=== PATIENT | female | born 1945 | race Asian ===

== ENCOUNTER 2018-10-06 18:56 | Inpatient (IN) | payer OTHER ==
[~2018-10-06] VITALS: Ht 170.2 cm; Wt 64.0 kg
--- NOTE | 2018-10-06 19:10 | NUR ---
BIBRA. AAOX4. BREATHING EVEN AND UNLBAORED. C/O DIZZYNESS X 1 HOUR AGO. PT IS NAUSEOUS AND VOMITING. AT BEDSIDE FOR EVAL.
--- NOTE | 2018-10-06 19:12 | NUR ---
ACTIVATED CODE STROKE, CALLED TELE NEURO
[2018-10-06] MEDS ORDERED: IOHEXOL-350 100 ML VIAL IV ONE (19:15)
[2018-10-06] MEDS ORDERED: CT SWABBABLE VALVE TRANS SET 1 EA INFUS.SET MC ONE (19:15)
[2018-10-06] MEDS ORDERED: IV NS 0.9% 250 ML IV ONE (19:15)
--- NOTE | 2018-10-06 19:15 | NUR ---
PT BEING WHEELED TO CT ON [facility] WITH RN AT BEDSIDE.
[2018-10-06 19:19] LABS: BASOPHILS # (AUTO) 0.1 /CMM (0.0-0.2); EOSINOPHILS % (AUTO) 3.2 % (0.0-6.0); HEMATOCRIT 40 % (33-45); HEMOGLOBIN 13.3 g/dL (11.5-14.8); LYMPHOCYTES # (AUTO) 2.3 /CMM (0.8-4.8); LYMPHOCYTES % (AUTO) 41.2 % (20.0-44.0); MEAN CORPUSCULAR HGB CONC 33 g/dl (31.0-36.0); MEAN CORPUSCULAR VOLUME 89 fL (82-100); MONOCYTES # (AUTO) 0.4 /CMM (0.1-1.30); MONOCYTES % (AUTO) 6.7 % (2.0-12.0); NEUTROPHILS # (AUTO) 2.6 /CMM (1.8-8.9); NEUTROPHILS % (AUTO) 47.9 % (43.0-81.0); PLATELET COUNT (AUTO) 215 /CMM (150-450); RED BLOOD CELL COUNT(AUTO) 4.49 MIL/uL (4.0-5.2); WHITE BLOOD COUNT (AUTO) 5.5 K/uL (4.3-11.0)
--- NOTE | 2018-10-06 19:25 | NUR ---
PT ON VIDEO CONFERENCE WITH NEUROLOGIDT. DAUGTHER AT BEDSIDE WITH PT.
[2018-10-06 19:31] LABS: CALCIUM, SERUM 8.7 mg/dL (8.5-10.1); CARBON DIOXIDE 24 mmol/L (21-32); CHLORIDE 102 mmol/L (98-107); CREATININE 0.7 mg/dL (0.6-1.3); GLUCOSE 135 mg/dL (74-106); POTASSIUM 3.6 mmol/L (3.5-5.1); SODIUM SERUM 137 mmol/L (136-145); UREA NITROGEN, BLOOD 17 mg/dL (7-18)
--- NOTE | 2018-10-06 19:34 | NUR ---
EKG AT BEDSIDE
[2018-10-06 19:35] LABS: ALANINE AMINOTRANSFERASE 23 U/L (12-78); ALBUMIN 3.6 g/dL (3.4-5.0); ALKALINE PHOSPHATASE 82 U/L (46-116); ASPARTATE AMINOTRANSFERASE 17 U/L (15-37); BILIRUBIN,DIRECT 0.1 mg/dL (0.0-0.2); BILIRUBIN,TOTAL 0.4 mg/dL (0.2-1.0)
--- NOTE | 2018-10-06 19:42 | NUR ---
DR. ANGELES ON THE PHONE WITH DR. MEYERS
--- NOTE | 2018-10-06 19:53 | NUR ---
PT WHEELED BACK TO CT ON [facility]
[2018-10-06] MEDS ORDERED: ONDANSETRON HCL/PF - ER 4 MG/2 ML VIAL IV ONE (20:00)
[2018-10-06] MEDS ORDERED: MECLIZINE HCL 12.5 MG TABLET PO ONE (20:00)
[2018-10-06] MEDS ORDERED: MECLIZINE HCL 12.5 MG TABLET ONE (20:02)
[2018-10-06] MEDS ORDERED: ONDANSETRON HCL/PF 4 MG/2 ML VIAL ONE (20:02)
--- NOTE | 2018-10-06 20:03 | NUR ---
BACL FROM CT
[2018-10-06 20:51] LABS: CHOLESTEROL 190 mg/dL (<200); HDL CHOLESTEROL 69 mg/dL (40-60); LDL 111 mg/dL (0-99); TRIGLYCERIDES 50 mg/dL (30-150)
[2018-10-06] MEDS ORDERED: METO-356 PO (21:41)
[2018-10-06] MEDS ORDERED: APIX5TAB4 PO (21:41)
[2018-10-06] MEDS: MECLIZINE HCL 12.5 MG TABLET PO SCH (22:00)
[2018-10-06] MEDS ORDERED: ONDANSETRON HCL/PF 4 MG/2 ML VIAL IM PRN (22:00)
--- NOTE | 2018-10-06 22:00 | NUR ---
US AT BEDSIDE
--- NOTE | 2018-10-06 22:08 | NUR ---
TEXTED DR. WILLS FOR MRI APPROVAL.
--- NOTE | 2018-10-06 22:12 | NUR ---
MRI APPROVED,IT WILL DONE TOMORROW AM 09/06 OK BY
--- NOTE | 2018-10-06 22:17 | NUR ---
REPORT GIVEN TO AMANDO RODRIGUEZ FOR FAN. PT TO TELE BED 308
--- NOTE | 2018-10-06 22:48 | NUR ---
URINE COLLECTED FROM PT AND SENT TO LAB
--- NOTE | 2018-10-06 23:04 | NUR ---
SPOKE WITH [facility] VP TRANSPORTATION FOR PT INFORMATION. SHE WILL CALL BACK FOR AUTHORIZATION
--- NOTE | 2018-10-06 23:20 | NUR ---
PT AMBULATED TO BATHROOM WITH SBA
--- NOTE | 2018-10-06 23:34 | NUR ---
RECEIVED CALL FROM KRIST[employer] CUSTOMER SERVICE LEADER- DINO. VERBAL APPROVAL TO ADMIT PT.
--- NOTE | 2018-10-07 00:13 | NUR ---
PT TRANSPORTED TO UNIT WITH EMT AT BEDSIDE WITH ACLS PROTOCOL
--- NOTE | 2018-10-07 00:30 | NUR ---
CYBER LEGAL ADVISOR ADMISSION NOTES RECEIVED PATIENT FROM ER VIA MONY. DX: VERTIGO. PATIENT IS ALERT AND ORIENTED X4, VERBALLY RESPONSIVE, ABLE TO MAKE NEEDS KNOWN. FAMILY AT BEDSIDE. BREATHING EVEN AND UNLABORED. NO SOB NOTED. TOLERATING ROOM AIR. CURRENTLY WITH NO COMPLAINTS OF PAIN OR DISCOMFORT. DENIES N/V AT THE MOMENT, NO CHEST PAIN, NO DIZZINESS. PATIENT AMBULATES WITH A STEADY GAIT. IV ON LEFT AND RIGHT ANTECUBITAL INTACT AND PATENT. SKIN DRY AND WARM TO TOUCH. AFEBRILE. ORIENTED TO THE USE OF UNIT AMENITIES. INSTRUCTED ON THE USE OF CALL LIGHT. SKIN CHECK RENDERED WITH NO SKIN ISSUES NOTED. BELONGINGS ACCOUNTED FOR. SAFETY MEASURES IN PLACE. CALL LIGHT WITHIN REACH. WILL CONTINUE TO MONITOR. Addendum: 10/07/18 at 0253 by JENNIFER MCDOWELL RN PATIENT ALREADY HAD ADMISSION ORDERS FROM DR. SARABIA WHEN PATIENT WAS IN ER. ALL WERE CARRIED OUT BY ER NURSE.
--- NOTE | 2018-10-07 01:10 | NUR ---
AMANDO MS NOTES 2200 MECLIZINE NOT ADMINISTERED. PATIENT DID NOT COME IN UNIT UNTIL 00:10. Addendum: 10/07/18 at 0653 by JENNIFER MCDOWELL RN ERROR: PATIENT IS TELE
[2018-10-07] MEDS ORDERED: ONDANSETRON HCL/PF 4 MG/2 ML VIAL IV PRN (02:00)
[2018-10-07 02:05] VITALS: BP 102/63
[2018-10-07 04:00] VITALS: BP 109/58
[2018-10-07] MEDS: MECLIZINE HCL 12.5 MG TABLET PO SCH ×2 (05:34→14:28)
--- NOTE | 2018-10-07 06:27 | NUR ---
COMMERCIAL DRIVER'S LICENSE DRIVER NOTES TRIED CHECKING PATIENT'S ORTHOSTATICS BUT PATIENT REFUSED. PER PATIENT "NOT NOW, SHE STILL WANTS TO SLEEP". WILL ENDORSE TO ONCOMING NURSE.
[2018-10-07 06:51] LABS: CARBON DIOXIDE 27 mmol/L (21-32); CHLORIDE 108 mmol/L (98-107); CREATININE 0.6 mg/dL (0.6-1.3); GLUCOSE 89 mg/dL (74-106); POTASSIUM 3.8 mmol/L (3.5-5.1); SODIUM SERUM 143 mmol/L (136-145); UREA NITROGEN, BLOOD 13 mg/dL (7-18)
--- NOTE | 2018-10-07 06:54 | NUR ---
INSPECTOR OUTSIDE PRODUCTION CLOSING NOTES PATIENT RESTING IN BED. NO ACUTE CHANGES THROUGHOUT SHIFT. BREATHING EVEN AND UNLABORED. NO SOB NOTED. TOLERATING ROOM AIR. CURRENTLY WITH NO COMPLAINTS OF PAIN OR DISCOMFORT. DENIES N/V AT THE MOMENT, NO CHEST PAIN, NO DIZZINESS. IV ON LEFT AND RIGHT ANTECUBITAL INTACT AND PATENT. ALL NEEDS ATTENDED TO. SAFETY MEASURES IN PLACE. CALL LIGHT WITHIN REACH. WILL ENDORSE TO ONCOMING NURSE FOR FAN.
[2018-10-07 06:56] LABS: BASOPHILS % (AUTO) 0.9 % (0.0-2.0); EOSINOPHILS % (AUTO) 2.6 % (0.0-6.0); HEMATOCRIT 36 % (33-45); HEMOGLOBIN 12.3 g/dL (11.5-14.8); LYMPHOCYTES # (AUTO) 1.6 /CMM (0.8-4.8); LYMPHOCYTES % (AUTO) 37.7 % (20.0-44.0); MEAN CORPUSCULAR HGB CONC 34 g/dl (31.0-36.0); MEAN CORPUSCULAR VOLUME 87 fL (82-100); MONOCYTES # (AUTO) 0.3 /CMM (0.1-1.30); MONOCYTES % (AUTO) 6.1 % (2.0-12.0); NEUTROPHILS # (AUTO) 2.3 /CMM (1.8-8.9); NEUTROPHILS % (AUTO) 52.7 % (43.0-81.0); PLATELET COUNT (AUTO) 181 /CMM (150-450); RED BLOOD CELL COUNT(AUTO) 4.17 MIL/uL (4.0-5.2); WHITE BLOOD COUNT (AUTO) 4.3 K/uL (4.3-11.0)
[2018-10-07 07:02] LABS: CHOLESTEROL 166 mg/dL (<200); HDL CHOLESTEROL 60 mg/dL (40-60); LDL 97 mg/dL (0-99); THYROID STIMULATING HORMONE 1.185 uIU/mL (0.358-3.74); TRIGLYCERIDES 50 mg/dL (30-150)
[2018-10-07 08:00] VITALS: BP 112/64
--- NOTE | 2018-10-07 08:00 | NUR ---
RN NOTES RECEIVED PATIENT IN THE BED A/O X4. PATIENT STABLE REFUSED PAIN, NO SOB , UNLABORED. PATIENT EATING BREAKFAST. ADMINISTERED SCHEDULED MEDICATION , V/S STABLE. PATIENT AMBULATORY SELF CARE, REFUSED DIZZINESS. IV ACCESS ON R/L AC AREA'S INTACT. PATIENT GOING TO HAVE A MRI PER MD ORDER. ADMINISTERED SCHEDULED MEDICATION. CALL LIGHT WITHIN TI REACH, SAFETY PRECAUTION MAINTAINED ALL THE TIME.
[2018-10-07] MEDS ORDERED: METOPROLOL SUCCINATE 25 MG TAB.SR.24H PO SCH (09:00)
[2018-10-07] MEDS ORDERED: APIXABAN 5 MG TABLET PO SCH (09:00)
--- NOTE | 2018-10-07 09:00 | NUR ---
rn notes Per Dr Delgadillo patient will d/c home, with prescription. continued monitoring.
--- NOTE | 2018-10-07 09:30 | NUR ---
RN NOTES PATIENT FURNACE TENDER FOR MRI.
--- NOTE | 2018-10-07 10:00 | NUR ---
rn notes Patient back from MRI, stable.
[2018-10-07] MEDS ORDERED: GADODIAMIDE 5 MMOL/10 ML VIAL IJ ONE (14:35)
[2018-10-07] MEDS ORDERED: GADODIAMIDE 2.5 MMOL/5 ML VIAL IJ ONE (14:35)
--- NOTE | 2018-10-07 14:35 | NUR ---
CAMP PROGRAM DIRECTOR NOTES PATIENT DISCHARGE AT THIS TIME GOING HOME. PATIENT A/O X4, REFUSED PAIN, MED COMPLAINT, V/S STABLE, AMBULATORY SELF CARE, NO ACUTE RESPIRATORY DISTRESS. MED RECONCILIATION AND DISCHARGE ORDER REVIEWED AND EXPLAINED TO THE PATIENT. PATIENT VERBALIZED UNDERSTANDING. PRESCRIPTION HANDED TO THE PATIENT. BELONGING WITH THE PATIENT. PATIENT SIGN PAPERWORK. PATIENT WILL FOLLOW PRIMARY MD. ESCORTED PATIENT TO THE [facility] FOR SAFETY. PATIENT WATER TRAINER BY DAUGHTER NAME AGATHA PHONE # [phone].
[2018-10-08] MEDS ORDERED: METOPROLOL SUCCINATE 25 MG TAB.SR.24H PO SCH (09:00)
== END 2018-10-07 14:36 | disposition home or self-care (01) | DRG 149 ==
LOC: ER 19:01 → TELE 23:38 → MED 10-07 10:36
PROVIDERS: ADMIT Internal Medicine; ATTEND Internal Medicine
DX: H81.391 Other peripheral vertigo, right ear (principal); I48.0 Paroxysmal atrial fibrillation; I10 Essential (primary) hypertension
CPT/HCPCS: 36415; 70450-TC; 70496-TC; 70498-TC; 70553-TC; 71045-TC; 80048-TC; 80061-TC; 80076-TC; 80305; 82962-TC; 84443-TC; 84484-TC; 85025-TC; 85730-TC; 87081-TC; 93307-TC; A9579; G0378; J2405; J7050; J8597; Q9967